=== PATIENT | female | born 2005 | race Asian ===

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

== ENCOUNTER 2025-01-27 06:21 | Day surgery (SDC) | payer MEDICAID, SELFPAY ==
[2025-01-27] VITALS (10 sets, daily range): BP systolic 101–121; BP diastolic 60–79; PULSE 55–71; RESP 16–20; TEMP 36.5–36.8; O2SAT 94–99; BMI 25.4
[2025-01-27 06:48] LABS: Ur HCG Qualitative* Negative (Negative)
[2025-01-27] MEDS: SODIUM CHLORIDE 0.9 % (FLUSH) 10 ML SYRINGE IVF (07:11)
[2025-01-27] MEDS: LACTATED RINGERS 1000 ML 1,000 ML 100 ML IV (07:11)
--- NOTE | 2025-01-27 07:28 | W.PM.H&PU ---
History & Physical Update History & Physical Update H&P Reviewed and patient assessed: No changes noted
--- NOTE | 2025-01-27 07:31 | P.GSOP_ITS ---
Operative Note Date of procedure: 01/27/25 Pre-op diagnosis: 1. Enlarging right breast mass, biopsy-proven fibroepithelial lesion. Post-op diagnosis: Same Type of Procedure: 1. Excision of right breast mass. Indications: 19-year-old female was seen in clinic for evaluation of right breast mass that was noticed several months ago. An ultrasound of this mass showed that in the right breast at 1:00 5 cm from the nipple there was a 2.8 x 3.8 cm microlobular mass. Biopsy showed fibroepithelial lesion. On clinical exam there was an easily palpable mass in the right breast at 1:00 5 cm from the nipple. This was slightly irregular to palpation but mobile. It was measuring approximately 4 x 3 cm. There was no axillary lymphadenopathy. Given patient's pathology results in the size of the mass, excision of this mass was recommended. The procedure was discussed in detail. The risks associated procedure including infection, bleeding, seroma, and the need for additional procedures were all discussed with the patient, and she agreed to proceed. Procedure Description: After discussing the risks and benefits of the procedure, the patient signed informed consent.? The operative site was marked and the patient was brought to the operating room and placed on the operating table in supine position.? Care was taken to pad the patient's pressure points.?? The patient was then sedated by anesthesia.?? The operative site was then prepped and draped in the usual sterile fashion.? A time-out was then performed. The mixture of Lidocaine and Marcaine was used as local anesthetic and was injected at the site of the incision. A curvilinear periareolar skin incision?was made in the?right breast spanning from?11 to 5 o'clock.? Subcutaneous skin flaps were developed until the mass was palpable. The mass was circumferentially?mobilized off the breast tissue and subcutaneous fat with cautery with frequent palpation of the mass. The mass was measuring approximately 5 x 3 cm and was encapsulated. Hemostasis was achieved with cautery. On the mass was mobile, it was excised. It was inked for orientation and sent to mammography. Mammography proved presence of the clip in the mass. The mass was then sent to pathology for permanent section. Hemostasis was achieved with cautery. Surgical cavity was then irrigated with normal saline. Breast tissue was mobilized inferiorly and superiorly with cautery to fill in breast tissue defect. The breast tissue was then reapproxim ated with interrupted 2-0 Vicryl sutures. The dermis was reapproximated with interrupted 3-0 Vicryl sutures. The skin of periareolar incision was closed with a running 4-0 Monocryl stitch. Steri-Strips and sterile dressings were placed over the incision. Patient's chest was wrapped with an Juan wrap. All counts were correct at the end of the case. ? The patient was then woken and transported to the recovery area in stable condition. ? The patient tolerated the procedure well. Findings: 5 x 3 cm mass, multilobular, encapsulated. Anesthesia: MAC and local Surgeon: Loretta Lester MD Estimated blood loss (mL): 5 Additional Specimen Information: 1. Right breast mass. Condition: stable Disposition: same day
--- NOTE | 2025-01-27 07:45 | CRLHL7_ITS ---
For Patients: As a result of the Century Cures Act, medical imaging exams and procedure reports are released immediately into your electronic medical record. You may view this report before your referring provider. If you have questions, please contact your health care provider. CLINICAL HISTORY: Fibroepithelial lesion COMPARISON: 10/25/2024 FINDINGS: One view of the right breast specimen submitted. The specimen contains the biopsied mass along with the biopsy clip. IMPRESSION: Specimen contains the biopsied mass and clip. ACR not applicable. Dictated by Landon Harris MD @ 01/27/2025 11:06:21 AM (Electronically Signed)
[2025-01-27] MEDS: CEFAZOLIN 1 GM inj IVP (07:46)
--- NOTE | 2025-01-27 08:40 | P.ANES_ITS ---
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
--- NOTE | 2025-01-27 08:40 | W.ANESCHARGE ---
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
[2025-01-27] MEDS: METOCLOPRAMIDE HCL 5 MG/ML INJ 10 MG IVP (09:11)
== END 2025-01-27 10:35 | disposition home or self-care (01) ==
PROVIDERS: Anesthesiology; Visit Provider Surgery
PROC: (CPT 19120; principal; 2025-01-27 07:45)
DX: D24.1 Benign neoplasm of right breast (principal); N63.12 Unspecified lump in the right breast, upper inner quadrant
CPT/HCPCS: 19120; 00400; 81025; 88307; J0690; J1100; J1885; J2405; J2704; J2765; J3010; J3490; J7120